=== PATIENT | female | born 2005 | race Two or more races ===

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

== ENCOUNTER 2024-08-12 12:49 | Emergency (ER) | payer OTHER ==
[2024-08-12 12:56] VITALS: BP 114/73; PULSE 101; RESP 20; TEMP 99.7; BMI 36.0
== END 2024-08-12 15:46 | disposition home or self-care (01) ==
LOC: JERFT 12:49
DX: O99.512 Diseases of the respiratory system complicating pregnancy, second trimester (principal); J45.909 Unspecified asthma, uncomplicated; Z3A.25 25 weeks gestation of pregnancy
CPT/HCPCS: 0241U-QW; 71045-TC-FY; 99284-25

== ENCOUNTER 2024-11-25 09:00 | Inpatient (IN) | payer OTHER ==
[2024-11-25 10:01] VITALS: BMI 39.9
[2024-11-25] MEDS: ELECTROLYTE-148 SOLN 1,000 ML IV SCH (10:30)
[2024-11-25] MEDS ORDERED: SODIUM CHLORIDE 100 ML IVPB ONE ×4 (10:31→22:19)
[2024-11-25] MEDS ORDERED: AMPICILLIN SODIUM 2 GM VIAL ONE (10:31)
[2024-11-25] MEDS: AMPICILLIN - 2 GM in SODIUM CHLORIDE 100 ML IVPB ONE (10:40)
[2024-11-25 10:56] LABS: ABSOLUTE IMMATURE GRANULOCYTES 0.04 x10^3/uL (0.0-0.031); BASOPHILS # 0.02 x10^3/uL (0.01-0.08); EOSINOPHIL % 1.3 % (0.7-5.8); EOSINOPHILS # 0.13 x10^3/uL (0.04-0.36); MCHC 33.4 g/dl (32.2-35.5); MEAN CELL VOLUME 91.6 fl (79.4-94.8); MEAN PLT VOLUME 11.3 fl (9.4-12.3); MONOCYTE # 0.78 x10^3/uL (0.24-0.86); MONOCYTE % 7.9 % (4.7-12.5); RDW 12.6 % (12.1-16.5)
[2024-11-25] MEDS ORDERED: ALBUTEROL SO4 HFA INHALER IH PRN (11:00)
[2024-11-25 11:04] LABS: INR 0.98 (0.83-1.09); PROTHROMBIN TIME (PATIENT) 10.7 SEC (9.7-13.0)
[2024-11-25] MEDS ORDERED: OXYTOCIN 30 UNITS in 0.9% NS 30 UNIT/500 ML INFUS.BAG IVPB ONE (11:05)
[2024-11-25 11:07] LABS: ACTIVATED PTT 27.2 SECONDS (25.2-36.5)
[2024-11-25] MEDS: OXYTOCIN 30 UNITS in 0.9% NS 30 UNIT/500 ML INFUS.BAG IVPB SCH (11:08)
[2024-11-25 11:20] LABS: CO2 23.0 mmol/L (21-32); GLUCOSE,RANDOM 88.0 mg/dL (74-106)
[2024-11-25 11:23] LABS: CREATININE 0.5 mg/dL (0.55-1.3)
[2024-11-25] MEDS ORDERED: AMPICILLIN SODIUM 1 GM VIAL ONE ×3 (14:28→22:18)
[2024-11-25] MEDS: AMPICILLIN - 1 GM in SODIUM CHLORIDE 100 ML IVPB SCH (14:34)
[2024-11-25] MEDS ORDERED: PROMETHAZINE HCL 25 MG/1 ML VIAL ONE (16:35)
[2024-11-25] MEDS ORDERED: BUTORPHANOL TARTRATE 1 MG/ML VIAL ONE (16:35)
[2024-11-25] MEDS: PROMETHAZINE HCL 25 MG/1 ML VIAL IVPB ONE (17:00)
[2024-11-25] MEDS: BUTORPHANOL TARTRATE 1 MG/ML VIAL IVPB ONE (17:20)
[2024-11-25 18:30] LABS: HIV INTERPRETATION NEGATIVE (NEGATIVE)
[2024-11-25] MEDS ORDERED: LIDOCAINE HCL 1% PRESERVATIVE FREE - 30ML VIAL ONE (19:08)
[2024-11-25] MEDS ORDERED: OXYTOCIN 20 UNITS in 0.9% NS 20 UNIT/1,000 ML INFUS.BAG IV ONE (19:09)
[2024-11-25] MEDS ORDERED: FENTANYL/BUPIVACAINE/NS/PF - PCEA - 50 ML DISP.SYRIN EP ONE (19:29)
[2024-11-25] MEDS ORDERED: NALOXONE HCL 0.4 MG/ML VIAL IVPUSH PRN (19:50)
[2024-11-25] MEDS ORDERED: BUPIVACAINE HCL/PF 0.25% (2.5MG/ML) 10 ML VIAL ONE (19:53)
[2024-11-25] MEDS ORDERED: FENTANYL CITRATE/PF 50 MCG/ML VIAL ONE (19:53)
[2024-11-25] MEDS: FENTANYL/BUPIVACAINE/NS/PF - PCEA - 50 ML DISP.SYRIN EP SCH (20:13)
[2024-11-26] MEDS ORDERED: FENTANYL/BUPIVACAINE/NS/PF - PCEA - 50 ML DISP.SYRIN EP ONE (00:39)
[2024-11-26] MEDS ORDERED: AMPICILLIN SODIUM 1 GM VIAL ONE (02:20)
[2024-11-26] MEDS ORDERED: SODIUM CHLORIDE 100 ML IVPB ONE (02:20)
[2024-11-26] MEDS ORDERED: FENTANYL CITRATE/PF 50 MCG/ML VIAL ONE (03:00)
[2024-11-26] MEDS ORDERED: morphine SULFATE/PF 1 MG/2 ML (2cc Syringe - QUVA) ONE (03:00)
[2024-11-26] MEDS ORDERED: LIDOCAINE HCL/PF 2% SDV 5ML VIAL ONE (03:02)
[2024-11-26] MEDS ORDERED: LIDO 2%/EPI 1:200000 PRESRVFRE (20 ML SDVIAL) ONE (03:02)
[2024-11-26] MEDS ORDERED: ONDANSETRON 4 MG/2 ML VIAL IVPB PRN (04:41)
[2024-11-26] MEDS ORDERED: ACETAMINOPHEN 325 MG TABLET (FP) PO PRN (04:41)
[2024-11-26] MEDS ORDERED: LACTATED RINGERS SOLUTION 1,000 ML/1,000 ML INFUS.BAG IV SCH (04:45)
[2024-11-26] MEDS ORDERED: ONDANSETRON 4 MG/2 ML VIAL IVPUSH PRN (05:04)
[2024-11-26] MEDS ORDERED: ACETAMINOPHEN INJECTION 100 ML ONE (05:56)
[2024-11-26] MEDS: ACETAMINOPHEN 1000 MG/100 ML BAG IVPB SCH (06:00)
[2024-11-26] MEDS: OXYTOCIN 20 UNITS in 0.9% NS 20 UNIT/1,000 ML INFUS.BAG IV SCH (08:15)
[2024-11-26 10:00] LABS: BASOPHILS # 0.02 x10^3/uL (0.01-0.08); EOSINOPHIL % 0.1 % (0.7-5.8); EOSINOPHILS # 0.01 x10^3/uL (0.04-0.36); MEAN PLT VOLUME 11.0 fl (9.4-12.3); RDW 12.6 % (12.1-16.5)
[2024-11-26 10:02] LABS: ABSOLUTE IMMATURE GRANULOCYTES 0.09 x10^3/uL (0.0-0.031); IMMATURE PLATELET FRACTION # 8.90 x10^3/uL; MCHC 33.2 g/dl (32.2-35.5); MEAN CELL VOLUME 93.8 fl (79.4-94.8); MONOCYTE # 1.02 x10^3/uL (0.24-0.86); MONOCYTE % 7.1 % (4.7-12.5)
[2024-11-26] MEDS: CLINDAMYCIN 600MG PREMIX IVPB 600 MG/50 ML BAG IVPB ONE (10:46)
[2024-11-26] MEDS: ENOXAPARIN NA (PORCINE) 40 MG/0.4 ML DISP.SYRIN SQ SCH (12:32)
[2024-11-26] MEDS: SENNOSIDES/DOCUSATE COMBO (SENNA PLUS) TABLET (UD) PO SCH (23:32)
[2024-11-27] MEDS ORDERED: ACETAMINOPHEN 325 MG TABLET (FP) PO PRN (00:15)
[2024-11-27] MEDS ORDERED: BISACODYL 10 MG SUPP.RECT RC PRN (04:41)
[2024-11-27] MEDS: ACETAMINOPHEN 500 MG TABLET (FP) PO PRN (05:20)
[2024-11-27 07:57] LABS: MEAN CELL VOLUME 93.8 fl (79.4-94.8); MEAN PLT VOLUME 11.1 fl (9.4-12.3); RDW 12.9 % (12.1-16.5)
[2024-11-27 07:58] LABS: ABSOLUTE IMMATURE GRANULOCYTES 0.06 x10^3/uL (0.0-0.031); BASOPHILS # 0.02 x10^3/uL (0.01-0.08); EOSINOPHIL % 0.3 % (0.7-5.8); EOSINOPHILS # 0.04 x10^3/uL (0.04-0.36); IMMATURE PLATELET FRACTION # 7.30 x10^3/uL; MCHC 32.9 g/dl (32.2-35.5); MONOCYTE # 1.05 x10^3/uL (0.24-0.86); MONOCYTE % 8.3 % (4.7-12.5)
[2024-11-27] MEDS: SIMETHICONE 80 MG TAB.CHEW (FP) PO PRN (20:20)
[2024-11-28 06:56] LABS: ABSOLUTE IMMATURE GRANULOCYTES 0.07 x10^3/uL (0.0-0.031); BASOPHILS # 0.02 x10^3/uL (0.01-0.08); EOSINOPHIL % 2.1 % (0.7-5.8); EOSINOPHILS # 0.25 x10^3/uL (0.04-0.36); MCHC 33.1 g/dl (32.2-35.5); MEAN CELL VOLUME 93.4 fl (79.4-94.8); MEAN PLT VOLUME 10.6 fl (9.4-12.3); MONOCYTE # 0.94 x10^3/uL (0.24-0.86); MONOCYTE % 8.0 % (4.7-12.5); RDW 12.8 % (12.1-16.5)
[2024-11-28 11:13] VITALS: BP 110/72; PULSE 88; RESP 17; TEMP 98.7
== END 2024-11-28 13:20 | disposition home or self-care (01) | DRG 540 ==
LOC: JLDR 09:00 → J3W 11-26 08:20
PROVIDERS: ADMIT Specialist; ATTEND Specialist
PROC: 10D00Z1 Extraction of Products of Conception, Low, Open Approach (ICD-10-PCS; principal; 2024-11-26)
DX: O36.8330 Maternal care for abnormalities of the fetal heart rate or rhythm, third trimester, not applicable or unspecified (principal); O99.824 Streptococcus B carrier state complicating childbirth; O42.90 Premature rupture of membranes, unspecified as to length of time between rupture and onset of labor, unspecified weeks of gestation; Z3A.40 40 weeks gestation of pregnancy; Z37.0 Single live birth
CPT/HCPCS: 36415; 80048; 85025; 85610; 85730; 86780; 86850; 86900; 86901; 87389; 88307-TC; 94010